=== PATIENT | female | born 1970 | race Caucasian/White ===

== ENCOUNTER 2018-04-22 19:58 | Inpatient (IN) | payer OTHER ==
[2018-04-22] MEDS: SOD CHLORIDE 0.9% 1,000 ML IV (22:34)
[2018-04-22] MEDS: KETOROLAC 30 MG INJ IV (22:34)
[2018-04-22] MEDS: ONDANSETRON 4 MG INJ IV (22:48)
[2018-04-23] MEDS: ACETAMINOPHEN 325 MG TAB PO (00:46)
[2018-04-23] MEDS: KETOROLAC 30 MG INJ IV ×2 (06:09→20:19)
[2018-04-23] MEDS: SOD CHLORIDE 0.9% 1,000 ML IV ×4 (08:30→20:12)
[2018-04-23] MEDS ORDERED: ZOLPIDEM 5 MG TAB PO (10:00)
[2018-04-23] MEDS ORDERED: NACL 0.9% 3 ML SYG IV (10:00)
[2018-04-23] MEDS ORDERED: DOCUSATE SODIUM 100 MG CAP PO (10:00)
[2018-04-23] MEDS: CEFTRIAXONE 1 GM/50 ML (PMX) 50 ML IVPB (10:31)
[2018-04-23] MEDS: ONDANSETRON 4 MG INJ IV ×2 (10:32→20:40)
[2018-04-23] MEDS: morphine 2 MG INJ IV ×2 (10:40→16:50)
[2018-04-23] MEDS: HYDROCODONE/APAP (5/325) TAB PO ×2 (13:58→23:37)
[2018-04-24] MEDS: SOD CHLORIDE 0.9% 1,000 ML IV (05:15)
[2018-04-24] MEDS: ONDANSETRON 4 MG INJ IV (05:15)
[2018-04-24] MEDS: morphine 2 MG INJ IV (05:16)
[2018-04-24 05:43] LABS: ADD MAN DIFF? NO
[2018-04-24 05:56] LABS: WHITE BLOOD COUNT 6.5 10^3/ul (4.8-10.8)
[2018-04-24 05:56] LABS: ABNORMAL IP MESSAGE 1; BASOPHILS % 0.5 % (0.0-2.0); EOSINOPHILS # 0.1 10^3/ul (0.0-0.5); EOSINOPHILS % 2.2 % (0.0-7.0); HEMATOCRIT 28.7 % (37.0-47.0); HEMOGLOBIN 8.9 g/dl (12.0-16.0); LYMPHOCYTES # 2.4 10^3/ul (0.8-2.9); LYMPHOCYTES % 37.2 % (15.0-51.0); MEAN CORPUSCULAR VOLUME 96.6 fl (82.0-101.0); MEAN PLATELET VOLUME 13.1 fl (7.4-10.4); MONOCYTE # 0.4 10^3/ul (0.3-0.9); MONOCYTES % 6.8 % (0.0-11.0); NEUTROPHIL # 3.4 10^3/ul (1.6-7.5); PLATELET COUNT 108 10^3/UL (140-415); RED BLOOD COUNT 2.97 10^6/ul (4.20-5.40)
[2018-04-24 06:07] LABS: POSITIVE DIFF @See below
[2018-04-24 06:07] LABS: HEMOGLOBIN A1C 5.4 % (0-5.9)
[2018-04-24 06:31] LABS: ANION GAP 8 (8-16); BLOOD UREA NITROGEN 16 mg/dl (7-20); CALCIUM 7.9 mg/dl (8.4-10.2); CARBON DIOXIDE 22 mmol/L (21-31); CHLORIDE 113 mmol/L (97-110); CREATININE 0.79 mg/dl (0.44-1.00); GLUCOSE 98 mg/dl (70-220); MAGNESIUM 1.7 mg/dl (1.7-2.5); PHOSPHORUS 4.2 mg/dl (2.5-4.9); POTASSIUM 4.1 mmol/L (3.5-5.1); SODIUM 139 mmol/L (135-144)
[2018-04-24] MEDS: ACETAMINOPHEN 325 MG TAB PO (10:32)
== END 2018-04-24 11:14 | disposition home or self-care (01) | DRG 690 ==
LOC: MS2 19:58
DX: N10 Acute pyelonephritis (principal)
CPT/HCPCS: 74019; 76700; 80048; 83036; 83735; 84100; 85025